=== PATIENT | female | born 1955 | race Caucasian/White ===

== ENCOUNTER 2018-07-02 02:01 | Observation (INO) | payer BC ==
--- NOTE | 2018-07-02 02:52 | ER Document Report ---
ED General - General Chief Complaint: Chest Pain Stated Complaint: LEFT CHEST/LEFT UPPER QUADRANT PAIN Time Seen by Provider: 07/02/18 02:48 Primary Care Provider: PABLO CARBALLO MD [HONORARY] - Follow up as needed Notes: Patient is a 63-year-old female presents with complaint of chest pain. Patient says pain since around 1 AM. She says it feels like the pain or heaviness rated her left breast. Says it radiates up sometimes into her right shoulder blade. Some mild shortness of breath. Some nausea. No vomiting. No pain in the abdomen itself. No pain in the right upper quadrant. No recent fevers or infections. She denies personal history of coronary artery disease. She says she has several siblings as well as her parents all had heart attacks. She denies any recent leg pain or leg swelling. She does not smoke. No drug use. She takes no medications and is otherwise healthy. She is followed by Dr. Ash. Patient took aspirin at home prior to coming to the ER. TRAVEL OUTSIDE OF THE [place] IN LAST 30 DAYS: No - Related Data Allergies/Adverse Reactions: adhesive tape Allergy (Verified 07/02/18 03:07) Past Medical History - Social History Smoking Status: Never Smoker Frequency of alcohol use: Rare Drug Abuse: None Family History: Reviewed & Not Pertinent Review of Systems - Review of Systems Notes: My Normal Review Basic REVIEW OF SYSTEMS: CONSTITUTIONAL : Denies fever, chills, or sweats. Denies recent illness. EENT: Denies eye, ear, throat, or mouth pain or symptoms. Denies nasal or sinus congestion. CARDIOVASCULAR: Has chest pain RESPIRATORY: Denies cough, cold, or chest congestion. Denies shortness of breath, difficulty breathing, or wheezing. GASTROINTESTINAL: Denies abdominal pain. Denies nausea, vomiting, or diarrhea. MUSCULOSKELETAL: Denies neck or back pain or joint pain or swelling. SKIN: Denies rash or skin lesions. NEUROLOGICAL: Denies altered mental status or loss of consciousness. Denies headache. Denies weakness or paralysis or loss of use of either side. Denies problems with gait or speech. Denies sensory or motor loss. ALL OTHER SYSTEMS REVIEWED AND NEGATIVE. Physical Exam - Vital signs Vitals: Temp Pulse Resp BP Pulse Ox 97.6 F 70 18 129/76 H 100 07/02/18 02:16 07/02/18 02:16 07/02/18 02:16 07/02/18 02:16 07/02/18 02:16 - Notes Notes: General Appearance: Well nourished, alert, cooperative, no acute distress, mild obvious discomfort. Vitals: reviewed, See vital signs table. Head: no swelling or tenderness to the head Eyes: PERRL, EOMI, Conjuctiva clear Neck: Supple, no neck tenderness, Chest wall: No reproducible pain to palpation of chest wall. Pain not reexacerbated with movement. Lungs: No wheezing, No rales, No rhonci, No accessory muscle use, good air exchange bilaterally. Heart: Normal rate, Regular rythm, No murmur, no rub Abdomen: Normal BS, soft, No rigidity, No abdominal tenderness, No guarding, no rebound, no abdominal masses, no organomegaly Extremities: good pulses in all extremities, no swelling or tenderness in the extremities, no edema. Skin: warm, dry, appropriate color, no rash Neuro: speech clear, oriented x 3, normal affect, responds appropriately to questions. Course - Re-evaluation Re-evalutation: 07/02/18 04:40 Patient's chest pain is relieved with the nitro glycerin. I will placed Nitropaste on her chest and talked her about potential admission. 07/02/18 04:57 I discussed admission with the patient is agreeable to it. I recommend admission based on the fact that she has new onset chest pain with shortness of breath and nausea that was relieved with nitro. Patient took aspirin at home prior to coming into the ED and therefore I did not give her another aspirin here. She is currently chest pain-free after the nitro. Initial EKG and troponin are negative. I did discuss the case with Dr. Lewis, hospitalist, who agrees to evaluate the patient for admission. Dictation of this chart was performed using voice recognition software; therefore, there may be some unintended grammatical errors. - Vital Signs Vital signs: Temp Pulse Resp BP Pulse Ox 97.6 F 70 15 124/79 100 07/02/18 02:16 07/02/18 02:16 07/02/18 03:01 07/02/18 03:01 07/02/18 03:01 - Laboratory Result Diagrams: 07/02/18 03:05 07/02/18 03:05 Laboratory results interpreted by me: 07/02/18 03:05 Calcium 10.5 H Total Protein 6.2 L - EKG Interpretation by Me Additional EKG results interpreted by me: 07/02/18 02:52 EKG is reviewed and interpreted by me. EKG shows sinus rhythm with a rate of [address] segment elevation or depression. No ischemic T wave inversions. NV interval, QRS duration, QT intervals are within normal range. No old EKG available for comparison. Discharge - Discharge Clinical Impression: Chest pain Qualifiers: Chest pain type: unspecified Qualified Code(s): R07.9 - Chest pain, unspecified Condition: Stable Disposition: ADMITTED OBSERVATION Admitting Provider: Hospitalist Unit Admitted: Telemetry Referrals: PABLO CARBALLO MD [HONORARY] - Follow up as needed
[2018-07-02] MEDS ORDERED: METOCLOPRAMIDE HCL ORAL SOLN 10 MG/10 ML UDCUP PO ONE (03:01)
[2018-07-02] MEDS ORDERED: MAG HYDROX/AL HYDROX/SIMETH SUSP 30 ML UDCUP PO ONE (03:01)
[2018-07-02] MEDS ORDERED: LIDOCAINE 2% VISCOUS SOLN 20 ML UDCUP PO ONE (03:01)
[2018-07-02 03:16] LABS: ABSOLUTE EOSINOPHILS # (AUTO) 0.1 10^3/uL (0.0-0.6); ABSOLUTE LYMPHOCYTES (AUTO) 1.9 10^3/uL (0.5-4.7); ABSOLUTE MONOCYTES (AUTO) 0.3 10^3/uL (0.1-1.4); ABSOLUTE NEUT (AUTO) 2.5 10^3/uL (1.7-8.2); BASOPHILS % (AUTO) 0.7 % (0-2); EOSINOPHILS % (AUTO) 2.1 % (0-6); HEMATOCRIT 38.7 % (36.0-47.0); HEMOGLOBIN 13.2 g/dL (12.0-15.5); LYMPHOCYTES % (AUTO) 38.7 % (13-45); MEAN CORPUSCULAR HEMOGLOBIN 30.1 pg (27.0-33.4); MEAN CORPUSCULAR HGB CONC 34.2 g/dL (32.0-36.0); MEAN CORPUSCULAR VOLUME 88 fl (80-97); MONOCYTES % (AUTO) 6.6 % (3-13); PLATELET COUNT 185 10^3/uL (150-450); SEGMENTED NEUTROPHILS % (AUTO) 51.9 % (42-78); TOTAL CELLS COUNTED % (AUTO) 100 %; WHITE BLOOD COUNT 4.9 10^3/uL (4.0-10.5)
[2018-07-02 03:28] LABS: ALANINE AMINOTRANSFERASE 28 U/L (9-52); ALBUMIN 3.8 g/dL (3.5-5.0); ALKALINE PHOSPHATASE 80 U/L (38-126); ANION GAP 10 (5-19); ASPARTATE AMINO TRANSFERASE 27 U/L (14-36); BILIRUBIN,DIRECT 0.3 mg/dL (0.0-0.4); BILIRUBIN,TOTAL 0.4 mg/dL (0.2-1.3); BLOOD UREA NITROGEN 20 mg/dL (7-20); CALCIUM 10.5 mg/dL (8.4-10.2); CARBON DIOXIDE 27 mmol/L (22-30); CHLORIDE 106 mmol/L (98-107); GLUCOSE 107 mg/dL (75-110); LIPASE 125.6 U/L (23-300); POTASSIUM 3.9 mmol/L (3.6-5.0); SODIUM 143.3 mmol/L (137-145); TOTAL PROTEIN 6.2 g/dL (6.3-8.2)
--- NOTE | 2018-07-02 03:41 | RADIOLOGY REPORT (SQ) ---
EXAM DESCRIPTION: XR CHEST 1 VIEW COMPLETED DATE/TME: 07/02/2018 03:00 CLINICAL HISTORY: 63 years, Female, chest pain Comparison: None FINDINGS: No focal lung consolidation. No pleural effusion. No pneumothorax. Cardiac and mediastinal silhouette is unremarkable. No acute osseous abnormality. Soft tissues are unremarkable. IMPRESSION: No acute findings. No focal lung consolidation.
[2018-07-02] MEDS ORDERED: NITROGLYCERIN 0.4 MG/TAB 25 TAB/BOTTLE SL PRN (04:16)
[2018-07-02] MEDS ORDERED: NITROGLYCERIN 2% OINTMENT 1 GM PACKET TP ONE (04:40)
[2018-07-02] MEDS ORDERED: MAG HYDROX/AL HYDROX/SIMETH SUSP 30 ML UDCUP PO PRN (05:45)
[2018-07-02] MEDS ORDERED: GLUCAGON,HUMAN RECOMB 1 MG INJ SUBCUT PRN (05:45)
[2018-07-02] MEDS ORDERED: NORMAL SALINE 1000 ML 1,000 ML IV PRN (05:45)
[2018-07-02] MEDS ORDERED: DEXTROSE 40% GEL 15 GM TUBE PO PRN ×2 (05:45)
[2018-07-02] MEDS ORDERED: ZOLPIDEM TARTRATE 5 MG TABLET PO PRN (05:45)
[2018-07-02] MEDS ORDERED: ACETAMINOPHEN 325 MG TABLET PO PRN (05:45)
[2018-07-02] MEDS ORDERED: MAGNESIUM HYDROXIDE SUSP 30 ML UDCUP PO PRN (05:45)
[2018-07-02] MEDS ORDERED: ACETAMINOPHEN 650 MG SUPP.RECT PR PRN (05:45)
[2018-07-02] MEDS ORDERED: DEXTROSE 50%-WATER 25 GM/50 ML DISP.SYRIN IV PRN ×2 (05:45)
[2018-07-02] MEDS: PANTOPRAZOLE SODIUM 40 MG TABLET.DR PO SCH (06:18)
--- NOTE | 2018-07-02 06:19 | PDOC H&P ---
History of Present Illness Admission Date/PCP: 07/02/18 05:08 Primary care physician: Marek Ash MD Patient complains of: Chest pain History of Present Illness: NANCY GUILLEN is a 63 year old female with no chronic medical problems who presented to the emergency room with acute onset of left sided inframammary chest pain with associated central chest heaviness, graded 4/10 in severity and associated with radiation to her right neck as well as mild nausea without vomiting. She denies any dyspnea or palpitations. No abdominal pain or melena or bright red bleeding per rectum. No other bleeding diathesis. No headache or dizziness or blurred vision. Upon presentation to the emergency room her EKG showed normal sinus rhythm with a rate of 72. Vital signs reveal a blood pressure 129/76 and later 130/75 with otherwise normal vital signs. Her CBC was unremarkable calcium was 10.5 with a total protein of 6.2 and troponin I less than 0.0 12 with albumin of 3.8. Portable chest x-ray showed no acute cardiopulmonary disease. The patient was given 10 mg of p.o. Reglan as well as viscous lidocaine and Maalox plus. She was later given sublingual nitroglycerin that resolved her pain and was therefore placed on Nitropaste. She will be admitted to an observation telemetry bed for further evaluation and monitoring. Past Medical History Medical History: None Past Surgical History Past Surgical History: Reports: Section Social History Smoking Status: Never Smoker Frequency of Alcohol Use: None Hx Recreational Drug Use: No Family History Family History: CAD - Her sisters, but brother and father had NE, CVA Parental Family History Reviewed: Yes Children Family History Reviewed: Yes Sibling(s) Family History Reviewed.: Yes Medication/Allergy Home Medications: No Home Medications 07/02/18 Allergies/Adverse Reactions: adhesive tape Allergy (Verified 07/02/18 03:07) Review of Systems Review of Systems: As per history of present illness. All pertinent systems were reviewed above. Constitutional, HEENT, cardiovascular, respiratory, GI, , musculoskeletal, neuro, psychiatric, endocrine, integumentary and hematologic systems were reviewed and are otherwise negative/unremarkable except for positive findings mentioned above in the HPI. Physical Exam Vital Signs: Temp Pulse Resp BP Pulse Ox 97.6 F 70 11 L 105/75 97 07/02/18 02:16 07/02/18 02:16 07/02/18 05:03 07/02/18 05:03 07/02/18 05:03 Intake & Output 06/30/18 07/01/18 07/02/18 06:59 06:59 06:59 Weight 75.6 kg Exam: Generally: Pleasant elderly female in no acute distress Vital signs-as listed Head - atraumatic, normocephalic. Pupils - equal, round and reactive to light and accommodation. Extraocular movements are intact. No scleral icterus. Oropharynx - moist mucous membranes and tongue. No pharyngeal erythema or e xudate. Neck - supple. No JVD. Carotid pulses 2+ bilaterally. No carotid bruits. No palpable thyromegaly or lymphadenopathy. Cardiovascular - regular rate and rhythm. Normal S1 and S2. No murmurs, gallops or rubs. Lungs - clear to auscultation bilaterally. Abdomen - soft and nontender. Positive bowel sounds. No palpable organomegaly or masses. Extremities - no pitting edema, clubbing or cyanosis. Neuro - grossly non-focal. Skin - no rashes. Breast, pelvic and rectal - deferred Results Laboratory Results: 07/02/18 03:05 07/02/18 03:05 07/02/18 07/02/18 03:05 03:05 WBC 4.9 RBC 4.40 Hgb 13.2 Hct 38.7 MCV 88 MCH 30.1 MCHC 34.2 RDW 14.0 Plt Count 185 Seg Neutrophils % 51.9 Lymphocytes % 38.7 Monocytes % 6.6 Eosinophils % 2.1 Basophils % 0.7 Absolute Neutrophils 2.5 Absolute Lymphocytes 1.9 Absolute Monocytes 0.3 Absolute Eosinophils 0.1 Absolute Basophils 0.0 Sodium 143.3 Potassium 3.9 Chloride 106 Carbon Dioxide 27 Anion Gap 10 BUN 20 Creatinine 0.89 Est GFR ( Amer) > 60 Est GFR (Non-Af Amer) > 60 Glucose 107 Calcium 10.5 H Total Bilirubin 0.4 AST 27 ALT 28 Alkaline Phosphatase 80 Total Protein 6.2 L Albumin 3.8 Lipase 125.6 07/02/18 03:05 Troponin I < 0.012 Impressions: Chest X-Ray 07/02/18 03:00 IMPRESSION: No acute findings. No focal lung consolidation. Assessment and Plan - Diagnosis (1) Chest pain Qualifiers: Chest pain type: unspecified Qualified Code(s): R07.9 - Chest pain, unspecified Is this a current diagnosis for this admission?: Yes Plan: Chest pain, rule out acute coronary syndrome. The patient will be admitted to an observation telemetry bed. Will follow serial cardiac enzymes and EKGs. We will obtain a cardiology consult in a.m. for further cardiac risk stratification. The patient will be placed on aspirin as well as p.r.n. sublingual nitroglycerin and morphine sulfate for pain. (2) DVT prophylaxis Is this a current diagnosis for this admission?: Yes Plan: Substance Lovenox and GI prophylaxis with PPI therapy for the possibility of GI etiology (3) Family history of coronary artery disease Is this a current diagnosis for this admission?: Yes Plan: We will therefore pursue workup for her chest pain though it is sounding atypical - Time Time Spent with patient: 35 or more minutes Anticipated discharge: Home - Plan Summary Plan Summary: The plan of care was discussed in details with the patient. I answered all questions. The patient agreed to proceed with the above-mentioned plan. The patient is presumably full code. This note was created by [employer] software and may contain typo errors that may have not been proofread.
[2018-07-02 06:41] LABS: CHOLESTEROL 186.91 mg/dL (0-200); TRIGLYCERIDES 169 mg/dL (<150)
[2018-07-02 06:52] LABS: DIRECT LDL 114 mg/dL (<100)
[2018-07-02 07:00] LABS: VLDL CHOLESTEROL 33.8 mg/dL (10-31)
[2018-07-02 07:43] LABS: CREATINE KINASE MB < 0.22 ng/mL (<4.55); TROPONIN I < 0.012 ng/mL
[2018-07-02] MEDS: ENOXAPARIN SODIUM INJ 40 MG/0.4 ML DISP.SYRIN SUBCUT SCH (09:01)
--- NOTE | 2018-07-02 10:40 | EKG REPORT ---
SEVERITY:- BORDERLINE ECG - SINUS RHYTHM PROBABLE LEFT ATRIAL ABNORMALITY BORDERLINE T ABNORMALITIES, ANTERIOR LEADS : Confirmed by: Alin Villa 02-Jul-2018 10:38:54
--- NOTE | 2018-07-02 12:01 | Progress Note ---
Provider Note Provider Note: PAtient seen with . She was eating a salad at the time. Hospital plans discussed. Significannt cardiac history. Sisters and dad all have history of VT in 50-60s. No prior hx by patient. She is not on ASA, statin. BP is on lower end of normal. HR normal. She has not had a prior stress test, and denies previous episodes of CP like this. Will await Cardiology instructions
[2018-07-02 12:40] LABS: CREATINE KINASE MB < 0.22 ng/mL (<4.55); TROPONIN I < 0.012 ng/mL
[2018-07-02 19:26] LABS: CREATINE KINASE MB < 0.22 ng/mL (<4.55); TROPONIN I < 0.012 ng/mL
--- NOTE | 2018-07-02 23:49 | EKG REPORT ---
SEVERITY:- BORDERLINE ECG - SINUS RHYTHM BORDERLINE T ABNORMALITIES, ANTERIOR LEADS : Confirmed by: Alin Villa 02-Jul-2018 23:48:12
[2018-07-03] MEDS: PANTOPRAZOLE SODIUM 40 MG TABLET.DR PO SCH (05:08)
[2018-07-03 07:55] LABS: ABSOLUTE EOSINOPHILS # (AUTO) 0.1 10^3/uL (0.0-0.6); ABSOLUTE LYMPHOCYTES (AUTO) 1.8 10^3/uL (0.5-4.7); ABSOLUTE MONOCYTES (AUTO) 0.3 10^3/uL (0.1-1.4); ABSOLUTE NEUT (AUTO) 2.7 10^3/uL (1.7-8.2); BASOPHILS % (AUTO) 0.5 % (0-2); EOSINOPHILS % (AUTO) 1.8 % (0-6); HEMATOCRIT 37.5 % (36.0-47.0); HEMOGLOBIN 12.8 g/dL (12.0-15.5); LYMPHOCYTES % (AUTO) 37.5 % (13-45); MEAN CORPUSCULAR HEMOGLOBIN 30.3 pg (27.0-33.4); MEAN CORPUSCULAR HGB CONC 34.1 g/dL (32.0-36.0); MEAN CORPUSCULAR VOLUME 89 fl (80-97); MONOCYTES % (AUTO) 5.5 % (3-13); PLATELET COUNT 175 10^3/uL (150-450); RED BLOOD COUNT 4.22 10^6/uL (3.72-5.28); RED CELL DISTRIBUTION WIDTH 14.1 % (11.5-14.0); SEGMENTED NEUTROPHILS % (AUTO) 54.7 % (42-78); TOTAL CELLS COUNTED % (AUTO) 100 %; WHITE BLOOD COUNT 4.9 10^3/uL (4.0-10.5)
[2018-07-03 08:11] LABS: BLOOD UREA NITROGEN 18 mg/dL (7-20); CALCIUM 9.2 mg/dL (8.4-10.2); GLUCOSE 93 mg/dL (75-110)
[2018-07-03 08:12] LABS: ANION GAP 8 (5-19); CARBON DIOXIDE 27 mmol/L (22-30); CHLORIDE 105 mmol/L (98-107); CHOLESTEROL 184.73 mg/dL (0-200); POTASSIUM 4.3 mmol/L (3.6-5.0); TRIGLYCERIDES 133 mg/dL (<150)
[2018-07-03 08:22] LABS: DIRECT LDL 105 mg/dL (<100)
[2018-07-03] MEDS ORDERED: REGADENOSON INJ 0.4 MG/5 ML DISP.SYRIN IV ONE (12:24)
[2018-07-03] MEDS: ENOXAPARIN SODIUM INJ 40 MG/0.4 ML DISP.SYRIN SUBCUT SCH (13:48)
[2018-07-03 17:08] VITALS: BP 131/78
--- NOTE | 2018-07-03 18:50 | PDOC DISCHARGE SUMMARY ---
General - Admit/Disc Date/PCP Admission Date/Primary Care Provider: 07/02/18 05:08 Discharge Date: 07/03/18 - Discharge Diagnosis (1) Chest pain Is this a current diagnosis for this admission?: Yes Summary: The chest pain was not cardiac. The patient had 3- troponins and a negative stress test. We did discuss potential etiologies. The patient did do some heavy lifting but this was over a week ago. The patient previously has had reflux but has not had any symptoms lately. The patient will follow up with her primary care physician to investigate other potential etiologies. (2) Hypercholesterolemia Is this a current diagnosis for this admission?: Yes Summary: A lipid panel was performed. The patient's LDL is just over 100. I suggested she start a cardiac diet to decrease risk (her family history is positive for cardiac disease). I also encouraged a regular exercise program and initiating 81 mg of enteric-coated aspirin daily. - Additional Information Home Medications: No Home Medications 07/02/18 History of Present Illness Patient complains of: Chest pain History of Present Illness: NANCY GUILLEN is a 63 year old female with no significant past medical history. There is a strong family history of cardiac disease. The patient had abrupt onset of central chest pressure. She did in fact try antacid therapy and it did not seem to relieve any symptoms. She took an aspirin and because the pain continued she was transported to the emergency department. Initial troponin was negative. She did begin to feel better and she was referred to the hospitalist for admission for ruling out cardiac etiology. Hospital Course Hospital Course: The patient had an unremarkable hospital course. She is pain-free this morning. Serial troponins were negative. Cardiolite stress test was negative and her EKG was unremarkable. She will be discharged home. Physical Exam Vital Signs: Temp Pulse Resp BP Pulse Ox 97.8 F 83 17 118/70 100 07/03/18 12:00 07/03/18 12:00 07/03/18 12:00 07/03/18 12:00 07/03/18 12:00 Intake & Output 07/02/18 07/03/18 07/04/18 06:59 06:59 06:59 Intake Total 1170 Balance 1170 Weight 75.6 kg 76.4 kg General appearance: PRESENT: no acute distress, cooperative, well-developed Head exam: PRESENT: atraumatic, normocephalic Eye exam: PRESENT: conjunctiva pink. ABSENT: scleral icterus Ear exam: PRESENT: normal external ear exam Mouth exam: PRESENT: moist, tongue midline Respiratory exam: PRESENT: clear to auscultation jolene, symmetrical, unlabored. A BSENT: rales, rhonchi, wheezes Cardiovascular exam: PRESENT: RRR, +S1, +S2 GI/Abdominal exam: PRESENT: normal bowel sounds, soft. ABSENT: distended, tenderness Rectal exam: PRESENT: deferred Gentrourinary exam: ABSENT: indwelling catheter Extremities exam: ABSENT: calf tenderness, joint swelling, pedal edema Musculoskeletal exam: PRESENT: ambulatory Neurological exam: PRESENT: alert, awake, oriented to person, oriented to place, oriented to time, oriented to situation, CN II-XII grossly intact Psychiatric exam: PRESENT: appropriate affect, normal mood. ABSENT: agitated, anxious Focused psych exam: ABSENT: delusional, restlessness Skin exam: PRESENT: dry, normal color, warm. ABSENT: rash Results Laboratory Results: 07/03/18 06:30 07/03/18 06:30 07/03/18 07/03/18 06:30 06:30 WBC 4.9 RBC 4.22 Hgb 12.8 Hct 37.5 MCV 89 MCH 30.3 MCHC 34.1 RDW 14.1 H Plt Count 175 Seg Neutrophils % 54.7 Lymphocytes % 37.5 Monocytes % 5.5 Eosinophils % 1.8 Basophils % 0.5 Absolute Neutrophils 2.7 Absolute Lymphocytes 1.8 Absolute Monocytes 0.3 Absolute Eosinophils 0.1 Absolute Basophils 0.0 Sodium 140.0 Potassium 4.3 Chloride 105 Carbon Dioxide 27 Anion Gap 8 BUN 18 Creatinine 0.89 Est GFR ( Amer) > 60 Est GFR (Non-Af Amer) > 60 Glucose 93 Calcium 9.2 Triglycerides 133 Cholesterol 184.73 LDL Cholesterol Direct 105 H VLDL Cholesterol 27.0 HDL Cholesterol 43 07/02/18 07/02/18 07/02/18 03:05 06:36 06:36 Creatine Kinase 87 CK-MB (CK-2) < 0.22 Troponin I < 0.012 < 0.012 07/02/18 07/02/18 07/02/18 12:02 12:02 18:37 Creatine Kinase 72 61 CK-MB (CK-2) < 0.22 Troponin I < 0.012 07/02/18 18:37 Creatine Kinase CK-MB (CK-2) < 0.22 Troponin I < 0.012 Impressions: Chest X-Ray 07/02/18 03:00 IMPRESSION: No acute findings. No focal lung consolidation. Qualifiers - * PATIENT BEING DISCHARGED WITH ANY OF THE FOLLOWING DIAGNOSIS: No Plan Discharge Plan: Discharge to home. Defer to primary care provider for additional investigations and treatment. Time Spent: Greater than 30 Minutes
--- NOTE | 2018-07-08 16:40 | DRAGON STRESS TEST REPORT ---
Intravenous Lexiscan Cardiolite stress test using single photon emmision computerized tomography. Date of procedure: 07/03/2018. Ordering Provider: Dr. Alcides Lewis. Patient's status: In Patient Indication: Chest pain. Coronary risk factors: Age, diabetes mellitus, dyslipidemia, and family history of coronary artery disease. Resting EKG: Sinus Rhythm. Within Normal Limits. Stress EKG: No changes of ischemia. The patient had no chest pain or discomfort, and there were no arrhythmias seen. Reason for termination: Protocol. Conclusions: Normal EKG and hemodynamic response to IV Lexiscan. Nuclear data: At rest the patient was given 11.80 millicuries of technetium 99m sestamibi injected intravenously. As per protocol rest non gated SPECT images were obtained. Subsequently the patient was given intravenous Lexiscan at a dose of 0.4 mg in 5 mL intravenously, followed by flush with normal saline. Subsequently the stress dose of 32.4 millicuries of technetium 99m sestamibi was injected intravenously. As per protocol stress gated images were obtained. Nuclear interpretation: Review of images showed that all segments of the myocardium had normal perfusion at rest, and normal perfusion post stress with IV Lexiscan. All segments of the myocardium had normal motion, contraction, and thickening by gated study. T. I D. ratio was normal at 0.90. There is no transient ischemic dilatation of the left ventricle. Computer read rest, and stress left ventricular ejection fraction were 69 %, and 69 %, respectively. Conclusion: 1. There is no scintigraphic evidence of Lexiscan induced myocardial ischemia. 2. There is no scintigraphic evidence of myocardial infarction/scar. Recommendations: Aggressive risk factor modification, and treating the underlying co- morbidities . MTDD
== END 2018-07-03 18:15 | disposition home or self-care (01) ==
LOC: ER 02:01 → EH 05:08 → 4N 06:55
PROVIDERS: ADMIT Family Medicine; ATTEND Family Medicine
DX: R07.89 Other chest pain (principal); E78.00 Pure hypercholesterolemia, unspecified; R11.0 Nausea; R06.02 Shortness of breath; Z82.49 Family history of ischemic heart disease and other diseases of the circulatory system
CPT/HCPCS: 93005 ×2; 99285; 36415 ×2; 82553; 82550; 83690; 85025 ×2; 80048; 80053; 84484; 80061 ×2; 93017; 71045; 78452; 93010; G0378 ×3; A9500; J2785; J3490 ×2; J1650; J7030; Q9969